=== PATIENT | female | born 1950 | race Caucasian/White ===

== ENCOUNTER 2023-07-15 06:00 | Day surgery (SDC) | payer MEDICARE, MEDICAID ==
[~2023-07-15] VITALS: Ht 160 cm; Wt 87.6 kg
[~2023-07-15 06:00] MED LIST: CALC1TAB30 PO; CLAR10CA3 PO; COLA100C5 PO; DEPA250T32 PO; DOCU240C9 PO; ECOT81TA5 PO; FERR325T3 PO; FURO20TA2 PO; HALO10TA20 PO; HALO1TAB19 PO; HYDR50TA70 PO; LACT10SO3; LAMO100T3 PO; LEVO150T7 PO; MIRA3350 PO; RA M10TA PO; SPIR-10 PO; TRAZ300T2 PO
[2023-07-15] MEDS ORDERED: OXYMETAZOLINE 0.05% NASAL SPRAY (AFRIN) As Ordered ONE (06:54)
[2023-07-15] MEDS ORDERED: ONDANSETRON 4MG 2ML VIAL As Ordered ONE (06:56)
[2023-07-15] MEDS ORDERED: LIDOCAINE 2% 100MG/5ML SDV (FOR ANES.) As Ordered ONE (06:56)
[2023-07-15] MEDS ORDERED: SUGAMMADEX SODIUM 500 MG/5 ML VIAL (BRIDION) As Ordered ONE (06:56)
[2023-07-15] MEDS ORDERED: ROCURONIUM BROMIDE 50MG/5ML VIAL As Ordered ONE (06:56)
[2023-07-15] MEDS ORDERED: propofoL 200 MG/20 ML VIAL As Ordered ONE (06:56)
[2023-07-15] MEDS ORDERED: fentaNYL 100 MCG/2 ML INJECTION As Ordered ONE (07:02)
[2023-07-15] MEDS ORDERED: MIDAZOLAM INJ 2MG/2ML VIAL As Ordered ONE (07:02)
[2023-07-15] MEDS ORDERED: dexmedeTOMIDine (4MCG/ML)200MCG/50ML BTL (PRECEDEX) As Ordered ONE (07:06)
[2023-07-15] MEDS: LR 1,000 ML IV SCH (07:30)
[2023-07-15] MEDS ORDERED: ACETAMINOPHEN 1000MG 100ML IV BAG As Ordered ONE (07:53)
[2023-07-15] MEDS: LIDOCAINE W/EPINEPHRINE 1% 20ML VIAL As Ordered ONE (08:22)
[2023-07-15] MEDS ORDERED: MORPHINE 2 MG/ML 1ML VIAL IV PRN (08:25)
[2023-07-15] MEDS ORDERED: oxyCODONE 5MG TAB PO PRN (08:25)
[2023-07-15] MEDS ORDERED: ONDANSETRON 4MG 2ML VIAL IV PRN (08:25)
[2023-07-15] MEDS ORDERED: fentaNYL 100 MCG/2 ML INJECTION IV PRN (08:25)
[2023-07-15 09:25] VITALS: BP 150/80; TEMP 97.1; O2SAT 96
== END 2023-07-15 09:45 | disposition home or self-care (01) ==
LOC: M SDC 06:00
PROVIDERS: ATTEND Dentist Oral and Maxillofacial Surgery
DX: K02.9 Dental caries, unspecified (principal); I50.9 Heart failure, unspecified; R60.0 Localized edema; E03.9 Hypothyroidism, unspecified; K59.00 Constipation, unspecified; Z79.82 Long term (current) use of aspirin; Z79.899 Other long term (current) drug therapy; Z88.0 Allergy status to penicillin; Z88.8 Allergy status to other drugs, medicaments and biological substances; R39.81 Functional urinary incontinence; F89 Unspecified disorder of psychological development
CPT/HCPCS: 41899; 88300; J0131; J1100; J2250; J2405; J3010